=== PATIENT | male | born 1985 | race Caucasian/White ===

== ENCOUNTER 2016-06-01 02:30 | Emergency (ER) | payer BC | END 2016-06-01 03:25 | disposition home or self-care (01) | LOC: D.ER 02:30 | DX: K04.7 Periapical abscess without sinus (principal); K21.9 Gastro-esophageal reflux disease without esophagitis ==

== ENCOUNTER 2017-11-03 21:49 | Inpatient (IN) | payer MEDICAID ==
[~2017-11-03] VITALS: Ht 175.3 cm; Wt 99.8 kg
--- NOTE | ~2017-11-03 | CN ---
PATIENT NAME:SHERRY BRADSHAW MEDICAL RECORD: [id number] : 81 LOCATION:[id number] ADMIT DATE: 11/03/17 ACCOUNT: [id number] CONSULTING PHYSICIAN: CHARLIE SHEN MD REFERRING PHYSICIAN: HARRY REILLY MD DATE OF CONSULTATION: 11/04/2017 IDENTIFYING DATA: The patient is 32 years old and he is admitted to the hospital secondary to alcoholism. CHIEF COMPLAINT: Alcoholism. HISTORY OF PRESENT ILLNESS: The patient has a long history of abusing alcohol. He has been drinking about a half a gallon of vodka every other day. This is more intense than his usual amount, which is also excessive. This began about a week ago when he broke up with his girlfriend. He is worried about DTs. Apparently, he went into DTs when he tried to stop drinking previously. Apparently, he was recently at [facility] and was given Librium and he says this made him hallucinate. MENTAL STATUS EXAMINATION: The patient is awake, alert and oriented and oriented to person, place, time and situation. His mood is euthymic. His affect appropriate. Thought processes are goal directed. Memory, concentration, and abstraction abilities are intact. He denies that he would seek to harm himself or others as well as overt psychotic symptoms. ASSESSMENT: Alcohol dependence. PLAN: The patient has an elevated lipase, but I have not seen any other significant clinical abnormalities other than the fact that he drinks excessively. Obviously DT precautions should be taken. He is receiving a banana bag right now. Oral thiamine and folate have already been ordered. Given what happened with the Librium, I think it would be reasonable to simply give him a milligram of Klonopin say perhaps 3 or 4 times a day on a scheduled basis along with every few hours p.r.n. for objective signs of withdrawal. This could probably be quickly tapered over the next few days. Once medically stabilized here, the patient is interested in inpatient or residential alcohol treatment and I think that is appropriate in his situation. Certainly, [facility] or a similar facility will medically detoxify or complete the detoxification and then enroll him in a 30-day intensive residential program. The patient seems motivated for treatment and has never been in any kind of substance abuse treatment before other than a couple of outpatient AA type meetings. I see no evidence of acute or direct dangerousness and there is no evidence of problems with reality testing. TRANSINT:[id number] Voice Confirmation ID: [id number] DOCUMENT ID: [id number] CONSULT REPORT [id number] SHERRY BRADSHAW, CHARLIE RANDHAWA at 1407 CC: [id number] DICTATION DATE: 11/04/17 1604 RETAIL ADVERTISING ACCOUNT EXECUTIVE: 11/04/17 1617 ADM IN [place] [id number] [place] [address]
[2017-11-03] MEDS ORDERED: LIBRIUM25 MG (21:55)
[2017-11-03 22:32] LABS: APPEARANCE CLEAR (CLEAR); BILIRUBIN NEGATIVE (NEGATIVE); COLOR YELLOW (YELLOW); GLUCOSE NEGATIVE (NEGATIVE); KETONE SMALL mg/dL (NEGATIVE); NITRITE NEGATIVE (NEGATIVE); PROTEIN TRACE mg/dL (NEGATIVE); UROBILINOGEN NORMAL (NORMAL)
[2017-11-03 22:36] LABS: BACTERIA FEW /hpf (NONE SEEN); RED CELLS - URINE OCC /hpf (0-5); WHITE CELLS - URINE OCC /hpf (0-5)
[2017-11-03 22:50] LABS: UDS - AMPHET NEGATIVE QUAL (NEGATIVE); UDS - BARB NEGATIVE QUAL (NEGATIVE); UDS - BENZO POSITIVE QUAL (NEGATIVE); UDS - COCAINE NEGATIVE QUAL (NEGATIVE); UDS - OPIATE NEGATIVE QUAL (NEGATIVE); UDS - PCP NEGATIVE QUAL (NEGATIVE); UDS - THC NEGATIVE QUAL (NEGATIVE)
[2017-11-03 22:56] LABS: BASOPHILS 1.8 % (0-2); EOSINOPHILS 1.8 % (0-7); HEMATOCRIT 44.7 % (42.0-54.0); HEMOGLOBIN 15.5 g/dL (13.5-17.5); IMMATURE GRANULOCYTES 0.5 % (0-5); LYMPHOCYTES 30.7 % (15-50); MCH 33.3 pg (26.0-34.0); MCHC 34.7 g/dL (31.0-37.0); MCV 95.9 fL (80.0-100.0); MEAN PLATELET VOLUME 9.9 fL (7.4-10.4); MONOCYTES 12.6 % (2-11); NEUTROPHILS 52.6 % (40-80); PLATELET COUNT 189 10x3/uL (130-400); RBC 4.66 10x6/uL (4.20-6.10); WBC 4.4 10x3/uL (4.8-10.8)
[2017-11-03 23:10] LABS: ALBUMIN 4.2 g/dL (3.4-5.0); ALKALINE PHOSPHATASE 59 U/L (46-116); ALT (SGPT) 122 U/L (10-68); BILIRUBIN - TOTAL 0.61 mg/dL (0.2-1.3); CALC OSMOLALITY 273 mosm/kg (275-300); CALCIUM 9.3 mg/dL (8.5-10.1); CARBON DIOXIDE 26.2 mmol/L (21.0-32.0); CHLORIDE - SERUM 99 mmol/L (98-107); CREATININE - SERUM 1.1 mg/dL (0.6-1.3); GLUCOSE 118 mg/dL (74-106); POTASSIUM - SERUM 3.5 mmol/L (3.5-5.1); PROTEIN - SERUM 8.6 g/dL (6.4-8.2); SODIUM 138 mmol/L (136-145); UREA NITROGEN 5 mg/dL (7-18); eGFR NON AFRICAN AMERICAN 81 mL/min (90-120)
[2017-11-03 23:22] LABS: AMYLASE - SERUM 59 U/L (25-115); CKMB 1.2 U/L (0.0-3.6); CREATINE KINASE 360 UL (21-232); LIPASE 426 U/L (73-393); TROPONIN-I < 0.017 ng/mL (0.000-0.060)
[2017-11-04] VITALS (14 sets, daily range): BP systolic 126–157; BP diastolic 81–107; BMI 32.5
[2017-11-04 04:52] LABS: BASOPHILS 1.5 % (0-2); HEMATOCRIT 43.5 % (42.0-54.0); HEMOGLOBIN 15.1 g/dL (13.5-17.5); IMMATURE GRANULOCYTES 0.5 % (0-5); LYMPHOCYTES 31.9 % (15-50); MCH 33.6 pg (26.0-34.0); MCHC 34.7 g/dL (31.0-37.0); MCV 96.7 fL (80.0-100.0); MEAN PLATELET VOLUME 9.9 fL (7.4-10.4); MONOCYTES 11.5 % (2-11); NEUTROPHILS 53.6 % (40-80); PLATELET COUNT 173 10x3/uL (130-400); WBC 4.1 10x3/uL (4.8-10.8)
[2017-11-04 05:31] LABS: ALKALINE PHOSPHATASE 55 U/L (46-116); ALT (SGPT) 108 U/L (10-68); BILIRUBIN - TOTAL 0.61 mg/dL (0.2-1.3); CALC OSMOLALITY 270 mosm/kg (275-300); CALCIUM 8.8 mg/dL (8.5-10.1); CHLORIDE - SERUM 99 mmol/L (98-107); GLUCOSE 140 mg/dL (74-106); POTASSIUM - SERUM 3.3 mmol/L (3.5-5.1); SODIUM 136 mmol/L (136-145); UREA NITROGEN 5 mg/dL (7-18); eGFR NON AFRICAN AMERICAN > 90 mL/min (90-120)
[2017-11-05 04:00] VITALS: BP 118/78
[2017-11-05 05:33] LABS: BASOPHILS 1.2 % (0-2); EOSINOPHILS 2.7 % (0-7); HEMATOCRIT 44.5 % (42.0-54.0); HEMOGLOBIN 15.3 g/dL (13.5-17.5); IMMATURE GRANULOCYTES 0.2 % (0-5); LYMPHOCYTES 43.7 % (15-50); MCH 33.4 pg (26.0-34.0); MCHC 34.4 g/dL (31.0-37.0); MCV 97.2 fL (80.0-100.0); MEAN PLATELET VOLUME 10.5 fL (7.4-10.4); MONOCYTES 10.2 % (2-11); PLATELET COUNT 174 10x3/uL (130-400); RBC 4.58 10x6/uL (4.20-6.10); RDW 14.1 % (11.5-14.5); WBC 4.1 10x3/uL (4.8-10.8)
[2017-11-05 06:01] LABS: ALBUMIN 3.8 g/dL (3.4-5.0); ALKALINE PHOSPHATASE 56 U/L (46-116); ALT (SGPT) 100 U/L (10-68); CALC OSMOLALITY 275 mosm/kg (275-300); CALCIUM 8.6 mg/dL (8.5-10.1); CARBON DIOXIDE 27.3 mmol/L (21.0-32.0); CHLORIDE - SERUM 104 mmol/L (98-107); GLUCOSE 100 mg/dL (74-106); POTASSIUM - SERUM 3.6 mmol/L (3.5-5.1); PROTEIN - SERUM 7.6 g/dL (6.4-8.2); SODIUM 140 mmol/L (136-145); eGFR NON AFRICAN AMERICAN > 90 mL/min (90-120)
[2017-11-05 06:02] LABS: UREA NITROGEN 3 mg/dL (7-18)
[2017-11-05 09:20] VITALS: BP 154/104
[2017-11-05 13:10] VITALS: Ht 175.3 cm; Wt 99.8 kg
[2017-11-05 20:00] VITALS: BP 105/63
[2017-11-06 04:00] VITALS: BP 112/76
[2017-11-06 06:00] LABS: ALBUMIN 3.4 g/dL (3.4-5.0); ALKALINE PHOSPHATASE 46 U/L (46-116); ALT (SGPT) 111 U/L (10-68); BILIRUBIN - TOTAL 0.57 mg/dL (0.2-1.3); CALC OSMOLALITY 274 mosm/kg (275-300); CALCIUM 8.3 mg/dL (8.5-10.1); CARBON DIOXIDE 27.9 mmol/L (21.0-32.0); CHLORIDE - SERUM 105 mmol/L (98-107); CREATININE - SERUM 0.8 mg/dL (0.6-1.3); GLUCOSE 80 mg/dL (74-106); LIPASE 392 U/L (73-393); POTASSIUM - SERUM 3.7 mmol/L (3.5-5.1); PROTEIN - SERUM 6.9 g/dL (6.4-8.2); SODIUM 140 mmol/L (136-145); UREA NITROGEN 3 mg/dL (7-18); eGFR NON AFRICAN AMERICAN > 90 mL/min (90-120)
[2017-11-06 06:20] LABS: BASOPHILS 1.1 % (0-2); EOSINOPHILS 3.2 % (0-7); HEMATOCRIT 43.8 % (42.0-54.0); HEMOGLOBIN 14.9 g/dL (13.5-17.5); IMMATURE GRANULOCYTES 0.2 % (0-5); LYMPHOCYTES 33.3 % (15-50); MCH 33.3 pg (26.0-34.0); MCV 97.8 fL (80.0-100.0); MEAN PLATELET VOLUME 10.2 fL (7.4-10.4); MONOCYTES 9.7 % (2-11); NEUTROPHILS 52.5 % (40-80); PLATELET COUNT 178 10x3/uL (130-400); RBC 4.48 10x6/uL (4.20-6.10); RDW 14.1 % (11.5-14.5); WBC 4.7 10x3/uL (4.8-10.8)
[2017-11-06 08:15] VITALS: BP 132/82
[2017-11-06] MEDS ORDERED: LIBRIUM5 MG PO (11:11)
[2017-11-06] MEDS ORDERED: LISINOPRIL10 MG PO (11:11)
[2017-11-06] MEDS ORDERED: MULTI-DAY VITAM1 TAB PO (11:12)
[2017-11-06 13:20] VITALS: BP 119/79
== END 2017-11-06 14:41 | disposition home or self-care (01) | DRG 896 ==
LOC: D.ER 21:49 → D.MS 23:58 → D.EDHOLD 23:58 → D.MS 11-04 14:27
PROVIDERS: Family Medicine; Internal Medicine Nephrology
DX: F10.239 Alcohol dependence with withdrawal, unspecified (principal); K85.90 Acute pancreatitis without necrosis or infection, unspecified; K52.9 Noninfective gastroenteritis and colitis, unspecified; E87.6 Hypokalemia